=== PATIENT | female | born 1955 | race Native Hawaiian/Other Pacific Islander ===

== ENCOUNTER 2020-11-08 13:04 | Outpatient (CLI) | payer OTHER | END 2020-11-08 23:58 | disposition home or self-care (01) | LOC: MAMMO 13:04 | PROVIDERS: ATTEND Nurse Practitioner Family | DX: E07.81 Sick-euthyroid syndrome (principal); Z12.31 Encounter for screening mammogram for malignant neoplasm of breast ==